=== PATIENT | female | born 1990 | race Caucasian/White ===

== ENCOUNTER 2018-03-25 01:35 | Emergency (ER) | payer SELFPAY ==
[2018-03-25 02:03] VITALS: BP 149/111; PULSE 90; O2SAT 98
[2018-03-25] MEDS ORDERED: Sodium Chloride 0.9% 1000 ML 1,000 ML IV STA (02:04)
[2018-03-25] MEDS ORDERED: Reglan 10 MG/2 ML IV ONE (02:04)
[2018-03-25] MEDS ORDERED: TORAdol 30 mg Injection IV ONE (02:04)
--- NOTE | 2018-03-25 02:12 | ERPHSYRPT ---
- History of Present Illness Time Seen by Provider: 03/25/18 01:59 Source: patient Exam Limitations: no limitations Patient Subjective Stated Complaint: Pt arrives to ER with c/o headache and dizziness for past 2 weeks stating feels like sinus pressure. States tried to lay down tonight and felt head throbbing. Denies URI sx. Triage Nursing Assessment: see above Physician History: Pt started c/o bifrontal headaches, facial pain and neck pain 1.5 weeks ago. She denies fall, injury, no vomiting, but nauseated, denies focal weakness, visual changes, slurred speech, she ambulates without difficulty. Timing/Duration: week(s) (1.5), gradual onset Quality: throbbing Head Pain Location: frontal Severity of Pain-Max: severe Severity of Pain-Current: moderate Recent Head Trauma: no recent headache/trauma Modifying Factors: Improves With: other (nothing) Associated Symptoms: denies symptoms Previous symptoms: no prior history Allergies/Adverse Reactions: No Known Drug Allergies Allergy (Verified 03/25/18 02:04) Home Medications: No Home Meds [No Home Meds] 10/16/13 [History] Hx Tetanus, Diphtheria Vaccination/Date Given: No Hx Influenza Vaccination/Date Given: No Hx Pneumococcal Vaccination/Date Given: No - Review of Systems Constitutional: No Symptoms Eyes: No Symptoms Abdominal/Gastrointestinal: Nausea Neurological: Dizziness, Headache All Other Systems: Reviewed and Negative - Past Medical History Pertinent Past Medical History: No - Past Surgical History Past Surgical History: No - Social History Smoking Status: Never smoker Exposure to second hand smoke: No Drug Use: none Patient Lives Alone: No - Female History Hx Now: No - Nursing Vital Signs Nursing Vital Signs: Initial Vital Signs Temperature 98.1 F 03/25/18 01:53 Pulse Rate 90 03/25/18 01:53 Respiratory Rate 18 03/25/18 01:53 Blood Pressure 149/111 03/25/18 01:53 O2 Sat by Pulse Oximetry 98 03/25/18 01:53 Pain Scale Pain Intensity 5 - Physical Exam General Appearance: no apparent distress Eye Exam: PERRL/EOMI, eyes nml inspection Ears, Nose, Throat Exam: normal ENT inspection, pharynx normal, moist mucous membranes Neck Exam: normal inspection, non-tender, supple, full range of motion, No carotid bruit, No JVD Respiratory Exam: normal breath sounds, lungs clear, airway intact, No chest tenderness Cardiovascular Exam: regular rate/rhythm, normal heart sounds, normal peripheral pulses, No murmur Gastrointestinal/Abdominal Exam: soft, normal bowel sounds, No tenderness, No distention, No mass, No guarding, No organomegaly Back Exam: normal inspection, No CVA tenderness Extremity Exam: normal inspection Mental Status Exam: alert, oriented x 3 clinical services specialist Exam: normal speech, No facial droop Coordination/Gait Exam: normal gait, normal cerebellar function Motor/Sensory Exam: no motor deficit Skin Exam: normal color, warm, dry, No rash Lymphatic Exam: No adenopathy SpO2 Interpretation: normal SpO2: 98 Oxygen Delivery: Room Air - Course Nursing assessment & vital signs reviewed: Yes - CT Exams Head CT Interpretation: Negative, Tele-radiologist Report Ordered Tests: Active Orders 24 hr Category Date Time Status IV Insertion STAT Care 03/25/18 02:04 Active Oxygen-ED Only NASAL CANNULA 2 lpm Care 03/25/18 02:04 Active HEAD WITHOUT CONTRAST [CT] Stat Exams 03/25/18 02:05 Taken CBC W DIFF Stat Lab 03/25/18 02:29 Completed CMP Stat Lab 03/25/18 02:29 Completed CULTURE,URINE Stat Lab 03/25/18 03:22 Received Erythrocyte Sedimentation Rate Stat Lab 03/25/18 02:29 Completed HCG,QUALITATIVE URINE Stat Lab 03/25/18 03:22 Completed PROTIME WITH INR Stat Lab 03/25/18 02:29 Completed UA W/ MICROSCOPIC Stat Lab 03/25/18 03:22 Completed Urine Triage Profile Stat Lab 03/25/18 03:22 Completed Medication Summary Discontinued Medications Generic Name Dose Route Start Last Admin Trade Name Leobardoq PRN Reason Stop Dose Admin Sodium Chloride 1,000 mls @ 999 mls/hr 03/25/18 02:04 03/25/18 04:37 Sodium Chloride 0.9% 1000 Ml IV 03/25/18 03:04 Infused .Q1H1M STA Infusion Sodium Chloride Confirm 03/25/18 02:16 Sodium Chloride 0.9% 1000 Ml Administered 03/25/18 02:17 Dose 1,000 mls @ ud .ROUTE .STK-MED ONE Ketorolac Tromethamine 30 mg 03/25/18 02:04 03/25/18 02:26 Toradol 30 Mg Injection IV 03/25/18 02:05 30 mg STAT ONE Administration Ketorolac Tromethamine Confirm 03/25/18 02:16 Toradol 30 Mg Injection Administered 03/25/18 02:17 Dose 30 mg .ROUTE .STK-MED ONE Metoclopramide HCl 10 mg 03/25/18 02:04 03/25/18 02:26 Reglan 10 Mg/2 Ml IV 03/25/18 02:05 10 mg STAT ONE Administration Metoclopramide HCl Confirm 03/25/18 02:16 Reglan 10 Mg/2 Ml Administered 03/25/18 02:17 Dose 10 mg .ROUTE .STK-MED ONE Potassium Chloride 20 meq 03/25/18 04:37 Potassium Chloride 20 Meq Powder For Oral Tracey PO 03/25/18 04:38 STAT ONE Lab/Rad Data: Laboratory Result Diagrams 03/25/18 02:29 03/25/18 02:29 Laboratory Results 03/25/18 03/25/18 03/25/18 Range/Units 03:22 03:22 03:22 WBC (4.0-10.5) K/mm3 RBC (4.1-5.4) M/mm3 Hgb (12.0-16.0) gm/dl Hct (35-47) % MCV (78-100) fl MCH (26-32) pg MCHC (32-36) g/dl RDW (11.5-14.0) % Plt Count (150-450) K/mm3 MPV (6-9.5) fl Gran % (36.0-66.0) % Eos # (Auto) (0-0.5) Absolute Lymphs (auto) (1.0-4.6) Absolute Monos (auto) (0.0-1.3) Lymphocytes % (24.0-44.0) % Monocytes % (0.0-12.0) % Eosinophils % (0.00-5.0) % Basophils % (0.0-0.4) % Absolute Granulocytes (1.4-6.9) Basophils # (0-0.4) ESR (0-20) mm/hr PT (9.95-12.35) SECONDS INR (0.8-3.0) Sodium (137-145) mmol/L Potassium (3.5-5.1) mmol/L Chloride (98-107) mmol/L Carbon Dioxide (22-30) mmol/L Anion Gap (5-15) MEQ/L BUN (7-17) mg/dL Creatinine (0.52-1.04) mg/dL Estimated GFR ML/MIN Glucose (74-106) mg/dL Calcium (8.4-10.2) mg/dL Total Bilirubin (0.2-1.3) mg/dL AST (14-36) U/L ALT (0-35) U/L Alkaline Phosphatase (38-126) U/L Serum Total Protein (6.3-8.2) g/dL Albumin (3.5-5.0) g/dL Ur Collection Type VOID Urine Color YELLOW (YELLOW) Urine Appearance CLEAR (CLEAR) Urine pH 7.0 (5-6) Ur Specific [place] 1.015 (1.005-1.025) Urine Protein NEGATIVE (Negative) Urine Ketones NEGATIVE (NEGATIVE) Urine Blood 250 (0-5) Randal/ul Urine Nitrite NEGATIVE (NEGATIVE) Urine Bilirubin NEGATIVE (NEGATIVE) Urine Urobilinogen NORMAL (0-1) mg/dL Ur Leukocyte Esterase NEGATIVE (NEGATIVE) Urine Microscopic RBC 2-5 (0-2) /HPF Urine Microscopic WBC 0-2 (0-5) /HPF Ur Epithelial Cells MODERATE (FEW) /HPF Amorphous Crystals FEW (NEGATIVE) /HPF Urine Bacteria MODERATE (NEGATIVE) /HPF Urine Mucus MODERATE (NEGATIVE) /HPF Urine Culture Reflexed YES (NO) Urine Glucose NEGATIVE (NEGATIVE) mg/dL Urine HCG, Qual NEGATIVE (Negative) Urine Opiates Level NEGATIVE (NEGATIVE) Ur Methadone NEGATIVE (NEGATIVE) Urine Barbiturates NEGATIVE (NEGATIVE) Ur Phencyclidine (PCP) NEGATIVE (NEGATIVE) Urine Amphetamine NEGATIVE (NEGATIVE) U Benzodiazepine Level NEGATIVE (NEGATIVE) Urine Cocaine NEGATIVE (NEGATIVE) Urine Marijuana (THC) NEGATIVE (NEGATIVE) Specimen Received 03/25/18 0310 03/25/18 03/25/18 03/25/18 Range/Units 02:29 02:29 02:29 WBC 8.3 (4.0-10.5) K/mm3 RBC 5.04 (4.1-5.4) M/mm3 Hgb 13.7 (12.0-16.0) gm/dl Hct 41.4 (35-47) % MCV 82.1 (78-100) fl MCH 27.2 (26-32) pg MCHC 33.1 (32-36) g/dl RDW 16.2 H (11.5-14.0) % Plt Count 240 (150-450) K/mm3 MPV 10.4 H (6-9.5) fl Gran % 60.0 (36.0-66.0) % Eos # (Auto) 0.12 (0-0.5) Absolute Lymphs (auto) 2.55 (1.0-4.6) Absolute Monos (auto) 0.62 (0.0-1.3) Lymphocytes % 30.6 (24.0-44.0) % Monocytes % 7.4 (0.0-12.0) % Eosinophils % 1.4 (0.00-5.0) % Basophils % 0.6 (0.0-0.4) % Absolute Granulocytes 4.99 (1.4-6.9) Basophils # 0.05 (0-0.4) ESR 13 (0-20) mm/hr PT 12.3 (9.95-12.35) SECONDS INR 1.06 (0.8-3.0) Sodium 141 (137-145) mmol/L Potassium 3.3 L (3.5-5.1) mmol/L Chloride 104 (98-107) mmol/L Carbon Dioxide 24 (22-30) mmol/L Anion Gap 16.8 H (5-15) MEQ/L BUN 12 (7-17) mg/dL Creatinine 0.65 (0.52-1.04) mg/dL Estimated GFR > 60.0 ML/MIN Glucose 121 H (74-106) mg/dL Calcium 9.5 (8.4-10.2) mg/dL Total Bilirubin 0.30 (0.2-1.3) mg/dL AST 43 H (14-36) U/L ALT 126 H (0-35) U/L Alkaline Phosphatase 92 (38-126) U/L Serum Total Protein 7.4 (6.3-8.2) g/dL Albumin 4.6 (3.5-5.0) g/dL Ur Collection Type Urine Color (YELLOW) Urine Appearance (CLEAR) Urine pH (5-6) Ur Specific [place] (1.005-1.025) Urine Protein (Negative) Urine Ketones (NEGATIVE) Urine Blood (0-5) Randal/ul Urine Nitrite (NEGATIVE) Urine Bilirubin (NEGATIVE) Urine Urobilinogen (0-1) mg/dL Ur Leukocyte Esterase (NEGATIVE) Urine Microscopic RBC (0-2) /HPF Urine Microscopic WBC (0-5) /HPF Ur Epithelial Cells (FEW) /HPF Amorphous Crystals (NEGATIVE) /HPF Urine Bacteria (NEGATIVE) /HPF Urine Mucus (NEGATIVE) /HPF Urine Culture Reflexed (NO) Urine Glucose (NEGATIVE) mg/dL Urine HCG, Qual (Negative) Urine Opiates Level (NEGATIVE) Ur Methadone (NEGATIVE) Urine Barbiturates (NEGATIVE) Ur Phencyclidine (PCP) (NEGATIVE) Urine Amphetamine (NEGATIVE) U Benzodiazepine Level (NEGATIVE) Urine Cocaine (NEGATIVE) Urine Marijuana (THC) (NEGATIVE) Specimen Received - Progress Progress: improved Air Movement: good Progress Note: 03/25/18 04:43 Pt improved after iv saline and Toradol, afebrile, stable, no severe pain or distress, did not vomit. I educated her about her results, and instructed to rest x 2-3 days, drink plenty of fluids, follow up with her physician, return if severe headaches, vomiting, fever> 102 F, lethargy. 03/25/18 04:46 Blood Culture(s) Obtained: No Antibiotics given: No Counseled pt/family regarding: lab results, diagnosis, need for follow-up, rad results - Departure Time of Disposition: 04:46 Departure Disposition: Home Clinical Impression: Headache Qualifiers: Headache type: tension-type Headache chronicity pattern: unspecified pattern Intractability: not intractable Qualified Code(s): G44.209 - Tension-type headache, unspecified, not intractable Sinusitis Qualifiers: Sinusitis location: other Chronicity: subacute Qualified Code(s): J01.80 - Other acute sinusitis Condition: Stable Critical Care Time: No Referrals: DOCTOR,NO FAMILY [Primary Care Provider] - Instructions: Headache, Adult (DC), Sinusitis, Adult (DC) Additional Instructions: Rest x 2-3 days, drink plenty of fluids, follow up with your physician in 2-3 days, return if severe headaches, vomiting, fever> 102 F, lethargy ! Prescriptions: Amoxicillin 500 mg PO TID 10 Days #30 capsule
[2018-03-25] MEDS ORDERED: Sodium Chloride 0.9% 1000 ML 1,000 ML ONE (02:16)
[2018-03-25] MEDS ORDERED: TORAdol 30 mg Injection ONE (02:16)
[2018-03-25] MEDS ORDERED: Reglan 10 MG/2 ML ONE (02:16)
[2018-03-25 02:32] LABS: BASOPHIL % 0.6 % (0.0-0.4); Basophil (Absolute #) 0.05 (0-0.4); Eosinophil % 1.4 % (0.00-5.0); Eosinophil (Absolute #) 0.12 (0-0.5); Granulocyte Absolute (ANC) 4.99 (1.4-6.9); Hematocrit 41.4 % (35-47); Hemoglobin 13.7 gm/dl (12.0-16.0); Lymphocyte (Absolute #) 2.55 (1.0-4.6); Lymphocytes % 30.6 % (24.0-44.0); Mean Cell Volume 82.1 fl (78-100); Mean Corpuscular Hemoglobin 27.2 pg (26-32); Mean Corpuscular Hgb Concent. 33.1 g/dl (32-36); Mean Platelet Volume 10.4 fl (6-9.5); Monocyte (Absolute #) 0.62 (0.0-1.3); Monocytes % 7.4 % (0.0-12.0); Platelet Count 240 K/mm3 (150-450); Red Blood Count 5.04 M/mm3 (4.1-5.4); Red Cell Distribution Width 16.2 % (11.5-14.0); White Blood Count 8.3 K/mm3 (4.0-10.5)
[2018-03-25 02:45] LABS: INR 1.06 (0.8-3.0)
[2018-03-25 02:50] LABS: ALBUMIN 4.6 g/dL (3.5-5.0); ALKALINE PHOSPHATASE 92 U/L (38-126); ANION GAP 16.8 MEQ/L (5-15); BLOOD UREA NITROGEN 12 mg/dL (7-17); CHLORIDE 104 mmol/L (98-107); Calcium 9.5 mg/dL (8.4-10.2); Carbon Dioxide 24 mmol/L (22-30); Creatinine 1 0.65 mg/dL (0.52-1.04); Glucose 121 mg/dL (74-106); Potassium 3.3 mmol/L (3.5-5.1); SGOT/AST 43 U/L (14-36); SGPT/ALT 126 U/L (0-35); SODIUM 141 mmol/L (137-145); Total Protein 7.4 g/dL (6.3-8.2)
[2018-03-25 03:12] LABS: Erythrocyte Sedimentation Rate 13 mm/hr (0-20)
[2018-03-25 03:41] LABS: Appearance CLEAR (CLEAR); Bilirubin NEGATIVE (NEGATIVE); Blood 250 Ery/ul (0-5); Glucose NEGATIVE (NEGATIVE); Ketones NEGATIVE (NEGATIVE); Leukocyte Esterase NEGATIVE (NEGATIVE); Nitrite NEGATIVE (NEGATIVE); Protein,Urine Dip NEGATIVE (Negative); Specific Gravity 1.015 (1.005-1.025); Urobilinogen NORMAL mg/dL (0-1)
[2018-03-25 03:42] LABS: Amourphous Crystal FEW /HPF (NEGATIVE); Bacteria MODERATE /HPF (NEGATIVE); Epithelial Cells MODERATE /HPF (FEW); Mucus MODERATE /HPF (NEGATIVE); WBC 0-2 /HPF (0-5)
[2018-03-25 03:43] LABS: Amphetamine,Urine NEGATIVE (NEGATIVE); Barbiturate,Urine NEGATIVE (NEGATIVE); Benzodiazepine,Urine NEGATIVE (NEGATIVE); Cocaine,Urine NEGATIVE (NEGATIVE); Methadone,Urine NEGATIVE (NEGATIVE); Opiate,Urine NEGATIVE (NEGATIVE); PCP,Urine NEGATIVE (NEGATIVE); THC,Urine NEGATIVE (NEGATIVE)
[2018-03-25] MEDS ORDERED: POTASSIUM CHLORIDE 20 MEQ POWDER FOR ORAL SOL PO ONE (04:37)
[2018-03-25] MEDS ORDERED: AMOXIL 500 MG PO ONE (04:50)
[2018-03-25] MEDS ORDERED: POTASSIUM CHLORIDE 20 MEQ POWDER FOR ORAL SOL ONE (04:50)
[2018-03-25] MEDS ORDERED: AMOXIL 500 MG ONE (04:59)
--- NOTE | 2018-03-25 09:49 | XRAY ---
Indication: Frontal headache and dizziness. No known injury. Multiple contiguous axial images obtained through the head without contrast. Comparison: None Normal appearing brain parenchyma, ventricles, and bony calvarium. Partially visualized bilateral maxillary sinus 1 cm polyp/retention cyst. Mastoid air cells are clear. Impression: No acute intracranial abnormalities. Partially visualized bilateral maxillary sinus polyps/retention cysts. Comment: Preliminary interpretation was made by [facility]. No critical discrepancy. CTDI 67.80
== END 2018-03-25 05:01 | disposition home or self-care (01) ==
LOC: ED 01:35
DX: G44.209 Tension-type headache, unspecified, not intractable (principal); J01.80 Other acute sinusitis
CPT/HCPCS: 36000; 36415; 70450; 80053; 80307; 81000; 84703; 85025; 85610; 85652; 87077; 87086; 87186; 96360; 96374; 96375; 99284; J1885; A9270-GY

== ENCOUNTER 2018-06-09 05:49 | Day surgery (SDC) | payer OTHER ==
[2018-06-09] MEDS ORDERED: DIPRIVAN 200 MG/20 ML IV ONE (05:50)
[2018-06-09] MEDS ORDERED: Lactated Ringers 1,000 ML IV SCH (06:00)
--- NOTE | 2018-06-09 08:37 | OP ---
SURGERY DATE/TIME: 06/09/2018 0758 PREOPERATIVE DIAGNOSIS: Rectal bleeding and diarrhea. POSTOPERATIVE DIAGNOSIS: Ulcerative colitis. PROCEDURE: Colonoscopy with biopsy. SURGEON: Dr. Louie. ANESTHESIA: MAC. Medications given by anesthesia department. HISTORY: The patient is a 28 year-old white female with a history of bloody diarrhea. She reports that she had taken antibiotics recently. She was felt the need to have endoscopic evaluation for diagnosis. The patient was appraised of the risks of the procedure including the risk of perforation, phlebitis, untoward reaction to medication, bleeding and missed lesions. The patient verbalized her understanding and desired to have the procedure performed. DESCRIPTION OF PROCEDURE: The patient was given the medications by the anesthesia department. She had continuous pulse oximetry, ECG monitoring, intermittent blood pressure monitoring and tidal CO2 monitoring during the examination. She was placed in the left lateral decubitus position. A digital rectal examination was performed and revealed normal anal sphincter tone and no masses. No significant hemorrhoids or fissure. The flexible Olympus pediatric colonoscope was used to intubate the rectum. A view of the colon was developed sequentially to the cecum. Upon insertion and withdrawal was noted beefy red appearance with mucous from the anal verge to approximately 50 cm depth of insertion. Once we reached the transverse colon the colon normalized. Biopsies were obtained in the lower segment of the colon to confirm the suspected diagnosis of ulcerative colitis. The scope was removed from the patient who tolerated the procedure well and was sent back to OP recovery in good condition. The prep was noted to be good.
[2018-06-09 09:03] VITALS: O2SAT 96
[2018-06-09 09:15] VITALS: BP 134/82; PULSE 82
== END 2018-06-09 09:16 | disposition home or self-care (01) ==
LOC: SDC 05:49
PROVIDERS: ATTEND Family Medicine
DX: K51.90 Ulcerative colitis, unspecified, without complications (principal); K62.5 Hemorrhage of anus and rectum; R19.7 Diarrhea, unspecified
CPT/HCPCS: 84703; 88305; 94250; J2704

== ENCOUNTER 2018-10-22 06:53 | Emergency (ER) | payer OTHER ==
[2018-10-22] MEDS ORDERED: Pepcid 20 MG VIAL IV ONE ×3 (07:10→07:35)
[2018-10-22] MEDS ORDERED: Sodium Chloride 0.9% 1000 ML 1,000 ML IV STA (07:10)
[2018-10-22] MEDS ORDERED: GI COCKTAIL 45 ML (Maalox/Lidocaine) PO ONE (07:10)
[2018-10-22] MEDS ORDERED: PROTONIX 40 MG IV IV ONE ×2 (07:10→07:29)
[2018-10-22 07:13] VITALS: O2SAT 98
[2018-10-22] MEDS ORDERED: XYLOCAINE HCl Viscous ONE ×2 (07:31→07:42)
[2018-10-22] MEDS ORDERED: Sodium Chloride 0.9% 1000 ML 1,000 ML ONE (07:31)
[2018-10-22] MEDS ORDERED: MAALOX ES 30 ML UNIT DOSE ONE ×2 (07:31→07:43)
[2018-10-22 07:48] LABS: BASOPHIL % 0.7 % (0.0-0.4); Basophil (Absolute #) 0.08 (0-0.4); Eosinophil % 0.4 % (0.00-5.0); Eosinophil (Absolute #) 0.04 (0-0.5); Granulocyte Absolute (ANC) 9.03 (1.4-6.9); Granulocytes % 83.8 % (36.0-66.0); Hematocrit 37.4 % (35-47); Hemoglobin 11.6 gm/dl (12.0-16.0); Lymphocyte (Absolute #) 1.37 (1.0-4.6); Lymphocytes % 12.7 % (24.0-44.0); Mean Platelet Volume 9.9 fl (6-9.5); Monocyte (Absolute #) 0.26 (0.0-1.3); Monocytes % 2.4 % (0.0-12.0); Platelet Count 336 K/mm3 (150-450); Red Blood Count 4.86 M/mm3 (4.1-5.4); White Blood Count 10.8 K/mm3 (4.0-10.5)
[2018-10-22 07:53] LABS: Mean Corpuscular Hemoglobin 23.8 pg (26-32)
[2018-10-22 07:54] LABS: ALBUMIN 4.7 g/dL (3.5-5.0); ALKALINE PHOSPHATASE 128 U/L (38-126); AMYLASE 70 U/L (30-110); ANION GAP 17.7 MEQ/L (5-15); BLOOD UREA NITROGEN 13 mg/dL (7-17); CHLORIDE 101 mmol/L (98-107); Calcium 9.3 mg/dL (8.4-10.2); Carbon Dioxide 23 mmol/L (22-30); Creatinine 1 0.53 mg/dL (0.52-1.04); Glucose 141 mg/dL (74-106); LIPASE 59 U/L (23-300); SGOT/AST 20 U/L (14-36); SGPT/ALT 17 U/L (0-35); SODIUM 138 mmol/L (137-145); Total Protein 8.5 g/dL (6.3-8.2)
[2018-10-22] MEDS ORDERED: Carafate 1 GM PO ONE ×2 (08:37→08:42)
[2018-10-22] MEDS ORDERED: Zofran 4 MG/2 ML VIAL IV ONE (08:37)
[2018-10-22] MEDS ORDERED: Zofran 4 MG/2 ML VIAL ONE ×2 (08:43→08:46)
--- NOTE | 2018-10-22 10:52 | ERPHSYRPT ---
- History of Present Illness Historian: patient Exam Limitations: no limitations Patient Subjective Stated Complaint: pain in medial epigastric region witn N&V and radiates to the back and under the right breast Triage Nursing Assessment: Pt c/o of medial epigastric pain that radiates to the right and to the back, pain with palpatation, bowel sounds heard in all 4 quadrants, hx of ulcerative colitis, has N&V, diarrhea, BP 170/118, rates pain 7 /10 Physician History: Pt is a 28 y/o female that came to the ED with complains of N/V, and epigastric pain radiated to the back. Pt denies F/C/S. No chest pain or palpitations. No SOB or cough. She states has h/o U.C, and is on Humira. Her U.C is under conrtol, and she has soft BMs, with some blood, but no pain or discomfort. Timing/Duration: today Activities at Onset: none Quality: sharpness, stabbing Abdominal Pain Onset Location: epigastric Pain Radiation: back Severity of Pain-Max: mild Severity of Pain-Current: mild Modifying Factors: Improves With: nothing Associated Symptoms: denies symptoms Allergies/Adverse Reactions: No Known Drug Allergies Allergy (Verified 10/22/18 07:13) Home Medications: Citalopram Hydrobromide [Celexa] 10 mg PO DAILY 06/02/18 [History] Multivitamin [Multivitamins] 1 each PO DAILY 06/02/18 [History] Adalimumab [Humira Pen Crohn's-Uc-Hs] 40 mg SQ UD 10/22/18 [History] Hx Tetanus, Diphtheria Vaccination/Date Given: No Hx Influenza Vaccination/Date Given: No Hx Pneumococcal Vaccination/Date Given: No - Review of Systems Constitutional: No Symptoms Respiratory: No Cough, No Dyspnea Cardiac: No Chest Pain, No Edema, No Syncope Abdominal/Gastrointestinal: Abdominal Pain, Nausea, Vomiting Musculoskeletal: No Back Pain, No Neck Pain Neurological: No Dizziness, No Focal Weakness, No Sensory Changes - Past Medical History Pertinent Past Medical History: Yes Neurological History: No Pertinent History ENT History: No Pertinent History Cardiac History: No Pertinent History Respiratory History: No Pertinent History Endocrine Medical History: Liver Disease Musculoskeletal History: No Pertinent History GI Medical History: Other History: No Pertinent History Psycho-Social History: Anxiety Female Reproductive Disorders: Other Other Medical History: gestational hypertension, fatty liver, ulcerative colitis - Past Surgical History Past Surgical History: No Neuro Surgical History: No Pertinent History Cardiac: No Pertinent History Respiratory: No Pertinent History Gastrointestinal: No Pertinent History Genitourinary: No Pertinent History Musculoskeletal: No Pertinent History Female Surgical History: No Pertinent History Other Surgical History: states "had an epideral for pain", natural childbirth x two - Social History Smoking Status: Never smoker Exposure to second hand smoke: No Drug Use: none Patient Lives Alone: No - Female History Hx Last Menstrual Period: 10/19/2018 Hx Now: No - Nursing Vital Signs Nursing Vital Signs: Initial Vital Signs Temperature 98.7 F 10/22/18 07:01 Pulse Rate 78 10/22/18 07:01 Blood Pressure 170/118 10/22/18 07:01 O2 Sat by Pulse Oximetry 98 10/22/18 07:01 Pain Scale Pain Intensity 7 - Physical Exam General Appearance: no apparent distress Eye Exam: PERRL/EOMI, eyes nml inspection Neck Exam: normal inspection, non-tender, supple, full range of motion Respiratory Exam: normal breath sounds, lungs clear, No respiratory distress Cardiovascular Exam: regular rate/rhythm, normal heart sounds Gastrointestinal/Abdomen Exam: soft, tenderness (in epigastric area, with radiation to the back) Back Exam: normal inspection, normal range of motion, No CVA tenderness, No vertebral tenderness Neurologic Exam: alert, oriented x 3, cooperative, normal mood/affect, nml cerebellar function, sensation nml, No motor deficits SpO2 Interpretation: normal SpO2: 98 O2 Delivery: Room Air - Course Nursing assessment & vital signs reviewed: Yes Ordered Tests: Active Orders 24 hr Category Date Time Status IV Insertion STAT Care 10/22/18 07:10 Active AMYLASE Stat Lab 10/22/18 07:35 Completed CBC W DIFF Stat Lab 10/22/18 07:35 Completed CMP Stat Lab 10/22/18 07:35 Completed LIPASE Stat Lab 10/22/18 07:35 Completed Medication Summary Discontinued Medications Generic Name Dose Route Start Last Admin Trade Name Freq PRN Reason Stop Dose Admin Al Hydrox/Mg Hydrox/Simethicone Confirm 10/22/18 07:31 Maalox Es 30 Ml Unit Dose Administered 10/22/18 07:32 Dose 30 ml .ROUTE .[facility]-MED ONE Al Hydrox/Mg Hydrox/Simethicone Confirm 10/22/18 07:43 Maalox Es 30 Ml Unit Dose Administered 10/22/18 07:44 Dose 30 ml .ROUTE .STK-MED ONE Famotidine 40 mg 10/22/18 07:10 10/22/18 07:34 Pepcid 20 Mg Vial IV 10/22/18 07:11 40 mg STAT ONE Administration Famotidine Confirm 10/22/18 07:29 Pepcid 20 Mg Vial Administered 10/22/18 07:30 Dose 20 mg IV .STK-MED ONE Famotidine Confirm 10/22/18 07:35 Pepcid 20 Mg Vial Administered 10/22/18 07:36 Dose 20 mg IV .STK-MED ONE Sodium Chloride 1,000 mls @ 999 mls/hr 10/22/18 07:10 10/22/18 08:52 Sodium Chloride 0.9% 1000 Ml IV 10/22/18 08:10 Infused .Q1H1M STA Infusion Sodium Chloride Confirm 10/22/18 07:31 Sodium Chloride 0.9% 1000 Ml Administered 10/22/18 07:32 Dose 1,000 mls @ ud .ROUTE .STK-MED ONE Lidocaine HCl Confirm 10/22/18 07:31 Xylocaine Hcl Viscous * Administered 10/22/18 07:32 Dose 15 ml .ROUTE .STK-MED ONE Lidocaine HCl Confirm 10/22/18 07:42 Xylocaine Hcl Viscous * Administered 10/22/18 07:43 Dose 15 ml .ROUTE .STK-MED ONE Magnesium Hydroxide 45 ml 10/22/18 07:10 10/22/18 07:33 Gi Cocktail 45 Ml (Maalox/Lidocaine) PO 10/22/18 07:11 45 ml STAT ONE Administration Ondansetron HCl 4 mg 10/22/18 08:37 10/22/18 08:45 Zofran 4 Mg/2 Ml Vial IV 10/22/18 08:38 4 mg STAT ONE Administration Ondansetron HCl Confirm 10/22/18 08:43 Zofran 4 Mg/2 Ml Vial Administered 10/22/18 08:44 Dose 4 mg .ROUTE .STK-MED ONE Ondansetron HCl Confirm 10/22/18 08:46 Zofran 4 Mg/2 Ml Vial Administered 10/22/18 08:47 Dose 4 mg .ROUTE .STK-MED ONE Pantoprazole Sodium 40 mg 10/22/18 07:10 10/22/18 07:34 Protonix 40 Mg Iv IV 10/22/18 07:11 40 mg STAT ONE Administration Pantoprazole Sodium Confirm 10/22/18 07:29 Protonix 40 Mg Iv Administered 10/22/18 07:30 Dose 40 mg IV .STK-MED ONE Sucralfate 1 g 10/22/18 08:37 10/22/18 08:46 Carafate 1 Gm PO 10/22/18 08:38 1 g STAT ONE Administration Sucralfate Confirm 10/22/18 08:42 Carafate 1 Gm Administered 10/22/18 08:43 Dose 1 g PO .STK-MED ONE Lab/Rad Data: Laboratory Result Diagrams 10/22/18 07:35 10/22/18 07:35 Laboratory Results 10/22/18 10/22/18 Range/Units 07:35 07:35 WBC 10.8 H (4.0-10.5) K/mm3 RBC 4.86 (4.1-5.4) M/mm3 Hgb 11.6 L (12.0-16.0) gm/dl Hct 37.4 (35-47) % MCV 77.0 L (78-100) fl MCH 23.8 L (26-32) pg MCHC 31.0 L (32-36) g/dl RDW 16.0 H (11.5-14.0) % Plt Count 336 (150-450) K/mm3 MPV 9.9 H (6-9.5) fl Gran % 83.8 H (36.0-66.0) % Eos # (Auto) 0.04 (0-0.5) Absolute Lymphs (auto) 1.37 (1.0-4.6) Absolute Monos (auto) 0.26 (0.0-1.3) Lymphocytes % 12.7 L (24.0-44.0) % Monocytes % 2.4 (0.0-12.0) % Eosinophils % 0.4 (0.00-5.0) % Basophils % 0.7 (0.0-0.4) % Absolute Granulocytes 9.03 H (1.4-6.9) Basophils # 0.08 (0-0.4) Sodium 138 (137-145) mmol/L Potassium 4.0 (3.5-5.1) mmol/L Chloride 101 (98-107) mmol/L Carbon Dioxide 23 (22-30) mmol/L Anion Gap 17.7 H (5-15) MEQ/L BUN 13 (7-17) mg/dL Creatinine 0.53 (0.52-1.04) mg/dL Estimated GFR > 60.0 ML/MIN Glucose 141 H (74-106) mg/dL Calcium 9.3 (8.4-10.2) mg/dL Total Bilirubin 0.50 (0.2-1.3) mg/dL AST 20 (14-36) U/L ALT 17 (0-35) U/L Alkaline Phosphatase 128 H (38-126) U/L Serum Total Protein 8.5 H (6.3-8.2) g/dL Albumin 4.7 (3.5-5.0) g/dL Amylase 70 (30-110) U/L Lipase 59 (23-300) U/L - Progress Progress: improved Progress Note: 10/22/18 10:53 Pt did get GI cocktail that she vomited, and I gave her Protonix, Pepcid and Carafate. I gave her Zofran post vomiting. Pt slowely improved, but pain is still present some. Pt is safe to be d/c on Pepcid PO. Pt should f/u with her PCP or GI specialist if no resolution of pain. 10/22/18 10:54 Will see patient in: office Counseled pt/family regarding: diagnosis, need for follow-up - Departure Time of Disposition: 10:55 Departure Disposition: Home, In-patient Admission Clinical Impression: GERD with esophagitis, GERD (gastroesophageal reflux disease) Condition: Stable Critical Care Time: No Referrals: DURAN LADD [Primary Care Provider] - Additional Instructions: F/U with GI, or PCP. Take Pepcid as ordered for two weeks. Prescriptions: Famotidine 20 mg [Pepcid 20 MG] 20 mg PO BID 15 Days #30 tablet
[2018-10-22 11:17] VITALS: BP 145/95; PULSE 60
== END 2018-10-22 11:17 | disposition home or self-care (01) ==
LOC: ED 06:53
DX: K21.0 Gastro-esophageal reflux disease with esophagitis (principal); R11.2 Nausea with vomiting, unspecified
CPT/HCPCS: 36000; 36415; 80053; 82150; 83690; 85025; 96360; 96374; 96375; 99284; J2405; A9270-GY